=== PATIENT | male | born 1965 | race Caucasian/White ===

== ENCOUNTER → 2017-10-20 | Day surgery (SDC) | payer BC ==
[~2017-10-20] MED LIST: ATORVASTATIN CA80 MG PO; IV RINGERS,LACTATED 1000ML 1,000 ML IV SCH; LIDOCAINE 1% PF 2 ML VIAL. ID PRN; LIDOCAINE 2% PF Vial for OR 5 ML VIAL. ONE; LISI1TAB5 PO; MIDAZOLAM HCL/PF 2 MG/2 ML VIAL. IV PRN; PROPOFOL 40 ML IV ONE; fentaNYL PF VIAL 100 MCG/2 ML VIAL IV PRN
[2017-10-20 08:07] VITALS: BP 110/75
== END | disposition home or self-care (01) ==
LOC: ENDOS 06:33
PROVIDERS: ATTEND Internal Medicine Gastroenterology
DX: Z12.11 Encounter for screening for malignant neoplasm of colon (principal); K64.0 First degree hemorrhoids; K57.30 Diverticulosis of large intestine without perforation or abscess without bleeding; E78.00 Pure hypercholesterolemia, unspecified; I10 Essential (primary) hypertension; E66.9 Obesity, unspecified
CPT/HCPCS: 45378; J2704; J2001